=== PATIENT | male | born 1955 | race Hispanic/Latino ===

== ENCOUNTER 2019-05-14 10:25 | Outpatient (CLI) | payer MEDICAID ==
[2019-05-14 11:03] LABS: Blood Urea Nitrogen 20 mg/dL (9-20)
--- NOTE | 2019-05-14 14:12 | Cat Scan Report ---
CT CHEST WITH CONTRAST INDICATION / CLINICAL INFORMATION: DIFFUSE NON-HODGKIN'S LYMPHOMS,LARGE CELL(DISORDER). TECHNIQUE: Axial CT images were obtained through the chest after 100 cc Omnipaque 300 IV contrast. Sagittal and coronal reformatted images. All CT scans at this location are performed using CT dose reduction for A GLORIA by means of automated exposure control. COMPARISON: None available. 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 A 2-lead pacemaker device is in position. Borderline to mild cardiom egaly is evident. No pericardial effusion. THORACIC AORTA: No significant abnormality. MEDIASTINUM and DOMENIC: No significant abnormality. LUNGS: No acute air space or interstitial disease. PLEURA: No significant pleural effusion. No pneumothorax. SKELETAL SYSTEM: No significant abnormality. UPPER ABDOMEN: No significant abnormality. ADDITIONAL FINDINGS: No intrathoracic or extrathoracic adenopathy is identified. IMPRESSION: Mild cardiomegaly. No evidence for adenopathy or mass in the chest. Signer Name: Ronn Duran Jr, MD Signed: 05/14/2019 2:07 PM Workstation Name: [id number]
--- NOTE | 2019-05-14 14:18 | Cat Scan Report ---
CT ABDOMEN AND PELVIS WITH CONTRAST HISTORY: DIFFUSE NON-HODGKIN'S LYMPHOMS,LARGE CELL(DISORDER) COMPARISON: None. TECHNIQUE: Axial CT images were obtained through the abdomen and pelvis after 100 cc of Omnipaque 300 intravenously. Sagittal and coronal reformatted images. All CT scans at this location are performed using CT dose reduction for ALARA by means of automated exposure control. FINDINGS: CT ABDOMEN: Liver: No significant abnormality. Biliary: No significant abnormality. Spleen: No significant abnormality. Unenlarged. Pancreas: No significant abnormality. Adrenals: No significant abnormality. Kidneys: There is mild focal cortical scarring in the superior pole of both kidneys. 3 simple cysts m easuring up to 1.5 cm are identified in the inferior right kidney. No hydronephrosis. Lymphatics: No pathologic adenopathy is identified in the abdomen or pelvis. Vasculature: No significant abnormality. Bowel/Peritoneum: Ileostomy site in the right lower quadrant is identified. Mild diverticulosis of th e descending and sigmoid colon is identified. No evidence for obstruction or focal inflammation.. No free air. No free fluid. Appendectomy changes are suspected. CT PELVIS: : The bladder is empty. There are surgical sutures along the anterior pelvic wall or anterior bladd er wall. Correlate with history. 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 Mild lumbar spondylos is. No fracture or suspicious bony lesion. Additional Findings: None IMPRESSION: No evidence for recurrent or metastatic disease in the abdomen or pelvis. Chronic findings as detailed above. Signer Name: Ronn Duran Jr, MD Signed: 05/14/2019 2:14 PM Workstation Name: [id number]
== END 2019-05-14 10:26 | disposition home or self-care (01) ==
LOC: CT 10:25
PROVIDERS: ATTEND Internal Medicine Hematology & Oncology
DX: N28.1 Cyst of kidney, acquired (principal); K57.30 Diverticulosis of large intestine without perforation or abscess without bleeding; M47.816 Spondylosis without myelopathy or radiculopathy, lumbar region; K21.9 Gastro-esophageal reflux disease without esophagitis; I11.9 Hypertensive heart disease without heart failure; J44.9 Chronic obstructive pulmonary disease, unspecified; E03.9 Hypothyroidism, unspecified
CPT/HCPCS: 36415; 71260; 74177; 82565; 84520; Q9967